=== PATIENT | female | born 1955 | race Caucasian/White ===

== ENCOUNTER 2022-04-01 06:14 | Day surgery (SDC) | payer MEDICARE, OTHER ==
[~2022-04-01] VITALS: Ht 165.1 cm; Wt 90.7 kg
[~2022-04-01 06:14] MED LIST: ALBIPROI INH; ALBU90OI INH; ALLEGRA ALLERG180 MG PO; AMLO5 PO; ASCO500; ATOR40TA PO; AZIT250 PO; Aspir 8181 MG PO; DOCU100 PO; ESOM20 PO; ESTR2; FLUO20; GLUCOSAMINE/CONDROIT PO; HYDACE5 PO; MONT10T; MULVITA; PANT20; PRED20 PO; SERT100 PO; SYMBICORT 160-4.6 GM INH; VALD10; VITAMIN D PO
--- NOTE | 2022-04-01 09:30 | NUR ---
10CC AIR REMOVED FROM R WRIST TR BAND. -BLEEDING OR SWELLING.
--- NOTE | 2022-04-01 10:13 | NUR ---
R WRIST TR BAND REMOVED. -BLEEDING OR SWELLING. R WRIST SPLINT REAPPLIED. PT VERBALIZED UNDERSTANDING OR WRITTEN AND VERBAL D/C INST. IV REMOVED. PT TAKEN OUT OF THE HRT CENTER VIA W/C.
== END 2022-04-01 10:15 | disposition home or self-care (01) ==
LOC: MHTC 06:14
DX: I25.10 Atherosclerotic heart disease of native coronary artery without angina pectoris (principal); R94.39 Abnormal result of other cardiovascular function study; I11.9 Hypertensive heart disease without heart failure; I25.5 Ischemic cardiomyopathy; E78.5 Hyperlipidemia, unspecified; Z79.82 Long term (current) use of aspirin; J44.9 Chronic obstructive pulmonary disease, unspecified; G47.33 Obstructive sleep apnea (adult) (pediatric); E78.00 Pure hypercholesterolemia, unspecified; Z91.041 Radiographic dye allergy status
CPT/HCPCS: 76937; 93454; 99152; 99153; A9270; C1769; C1887; C1894; J1200; J1644; J1720; J2250; J3010; J7030; J7050; Q9967